=== PATIENT | female | born 1995 | race Caucasian/White ===

== ENCOUNTER 2016-11-29 18:00 | Emergency (ER) | payer BC ==
[~2016-11-29] VITALS: Ht 152.4 cm; Wt 55.4 kg
[~2016-11-29 18:00] MED LIST: NAPR1TAB9 PO; NUTR-977 PO
[2016-11-29 18:04] VITALS: TEMP 36.9; Ht 152.4 cm; Wt 55.4 kg
--- NOTE | 2016-11-29 18:23 | EMERGENCY ROOM VISIT NOTE ---
History Report prepared by Delmi: Joseph Woods Under the Supervision of: Dr. Bertin Galdamez D.O. First contact with patient: 18:11 Chief Complaint: ABDOMINAL PAIN Stated Complaint: [id number]&[id number] ,FEAR OF ECTOPIC History of Present Illness The patient is a 21 year old female who presents to the Emergency Room with complaints of intermittent and severe abdominal cramping as well as light vaginal "spotting." The patient states that she is currently 6 weeks and has been experiencing her symptoms since 1.5 weeks after supposed conception. Her aches and cramping are primarily on the left side. She notes that she has been noticing some spotting, but that it has been very light. This is the patient's first . Her last normal menstrual period was November 19. 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 A total of 10 systems reviewed and were otherwise negative. Past Medical & Surgical Medical Problems: (1) Irregular menstrual bleeding Family History Cancer Diabetes mellitus Hypertension Social History Smoking Status: Never Smoker Alcohol Use: occasionally Drug Use: none Housing Status: lives with roommate Occupation Status: employed Current/Historical Medications No Active Prescriptions or Reported Meds Allergies Coded Allergies: No Known Allergies (Unverified , 03/12/16) Physical Exam Vital Signs Date Time Temp Pulse Resp B/P (MAP) Pulse Ox O2 Delivery O2 Flow Rate FiO2 11/29/16 20:40 70 16 124/81 98 11/29/16 20:00 69 16 116/74 98 Room Air 11/29/16 18:04 36.9 86 17 133/85 99 Room Air Physical Exam GENERAL: Patient is awake, alert, and in no acute distress. Patient is resting comfortably and showing no signs of anxiety EYES: The conjunctivae are clear. The pupils are round and reactive. EARS, NOSE, MOUTH AND THROAT: The nose is without any evidence of any deformity. Mucous membranes are moist tongue is midline NECK: The neck is nontender and supple. RESPIRATORY: Normal respiratory effort is noted there is no evidence of wheezing rhonchi or rales CARDIOVASCULAR: Regular rate and rhythm noted there no murmurs rubs or gallops normal S1 normal S2 GASTROINTESTINAL: The abdomen is soft. Bowel sounds are present in all quadrants. Abdomen is nontender PELVIS: The Pelvis is stable. No tenderness to palpation is noted. BACK: No midline tenderness or or step-off noted range of motion in flexion extension as well as rotation no signs of muscle spasm noted MUSCULOSKELETAL/EXTREMITIES: There is no evidence of gross deformity full range of motion is noted in the hips and shoulders SKIN: There is no obvious evidence of any rash. There are no petechiae, pallor or cyanosis noted. NEUROLOGIC: Patient is awake alert and oriented x3. Medical Decision & Procedures ER Provider Diagnostic Interpretation: Radiology results as stated below per my review and radiologist interpretation: LIMITED (US) (transabdominal and endovaginal scanning) CLINICAL HISTORY: Vaginal bleeding COMPARISON STUDY: 04/04/2014 FINDINGS: The uterus measured 9.5 x 5 x 6.8 cm. A 1.5 cm intrauterine gestational sac was visualized. A yolk sac was identified. No pole wasn't yet evident. The estimated postmenstrual age is 5 weeks and 6 days. Two nonspecific echogenic foci are visualized within the myometrium, adjacent to the gestational sac. The right ovary measures 40 x 17 x 20 mm. The left ovary measures 13 x 10 x 14 mm. IMPRESSION: Early intrauterine gestation. A 15 mm gestational sac with a yolk sac was identified. A pole was not visualized. The estimated postmenstrual age is 5 weeks 6 days. Electronically signed by: Jorge Torres M.D. 11/29/2016 8:05 PM Dictated Date/Time: 11/29/2016 8:01 PM Laboratory Results 11/29/16 18:30 Red Blood Count 4.79, Mean Corpuscular Volume 82.3, Mean Corpuscular Hemoglobin 28.2, Mean Corpuscular Hemoglobin Concent 34.3, Mean Platelet Volume 9.3, Neutrophils (%) (Auto) 69.0, Lymphocytes (%) (Auto) 25.4, Monocytes (%) (Auto) 4.3, Eosinophils (%) (Auto) 0.9, Basophils (%) (Auto) 0.3, Neutrophils # (Auto) 6.69, Lymphocytes # (Auto) 2.47, Monocytes # (Auto) 0.42, Eosinophils # (Auto) 0.09, Basophils # (Auto) 0.03 11/29/16 18:30 Test 11/29/16 18:30 11/29/16 20:30 White Blood Count 9.71 K/uL (4.8-10.8) Red Blood Count 4.79 M/uL (4.2-5.4) Hemoglobin 13.5 g/dL (12.0-16.0) Hematocrit 39.4 % (37-47) Mean Corpuscular Volume 82.3 fL (80-100) Mean Corpuscular Hemoglobin 28.2 pg (25-34) Mean Corpuscular Hemoglobin Concent 34.3 g/dl (32-36) Platelet Count 287 K/uL (130-400) Mean Platelet Volume 9.3 fL (7.4-10.4) Neutrophils (%) (Auto) 69.0 % Lymphocytes (%) (Auto) 25.4 % Monocytes (%) (Auto) 4.3 % Eosinophils (%) (Auto) 0.9 % Basophils (%) (Auto) 0.3 % Neutrophils # (Auto) 6.69 K/uL (1.4-6.5) Lymphocytes # (Auto) 2.47 K/uL (1.2-3.4) Monocytes # (Auto) 0.42 K/uL (0.11-0.59) Eosinophils # (Auto) 0.09 K/uL (0-0.5) Basophils # (Auto) 0.03 K/uL (0-0.2) RDW Standard Deviation 38.4 fL (36.4-46.3) RDW Coefficient of Variation 12.7 % (11.5-14.5) Immature Granulocyte % (Auto) 0.1 % Immature Granulocyte # (Auto) 0.01 K/uL (0.00-0.02) Prothrombin Time 10.6 SECONDS (9.0-12.0) Prothromb Time International Ratio 1.0 (0.9-1.1) Activated Partial Thromboplast Time 30.1 SECONDS (21.0-31.0) Partial Thromboplastin Ratio 1.2 Anion Gap 7.0 mmol/L (3-11) Est Creatinine Clear Calc Drug Dose 98.4 ml/min Estimated GFR () 142.5 Estimated GFR (Non- 123.0 BUN/Creatinine Ratio 11.4 (10-20) Calcium Level 8.3 mg/dl (8.5-10.1) Total Bilirubin 0.3 mg/dl (0.2-1) Aspartate Amino Transf (AST/SGOT) 12 U/L (15-37) Alanine Aminotransferase (ALT/SGPT) 18 U/L (12-78) Alkaline Phosphatase 68 U/L (45-117) Total Protein 7.7 gm/dl (6.4-8.2) Albumin 3.7 gm/dl (3.4-5.0) Globulin 4.0 gm/dl (2.5-4.0) Albumin/Globulin Ratio 0.9 (0.9-2) Human Chorionic Gonadotropin, Quant 36112 mIU/mL Urine Color YELLOW Urine Appearance CLEAR (CLEAR) Urine pH 7.5 (4.5-7.5) Urine Specific [place] 1.009 (1.000-1.030) Urine Protein NEG (NEG) Urine Glucose (UA) NEG (NEG) Urine Ketones NEG (NEG) Urine Occult Blood NEG (NEG) Urine Nitrite NEG (NEG) Urine Bilirubin NEG (NEG) Urine Urobilinogen NEG (NEG) Urine Leukocyte Esterase NEG (NEG) Laboratory results per my review. ED Course 1813: The patient was evaluated in room C5. A complete history and physical examination were performed. 2036:: Upon reevaluation, the patient is resting in bed. I discussed the results and treatment plan with her. She verbalized agreement of the treatment plan. The patient was discharged home. Medical Decision Differential diagnosis: Etiologies such as ectopic , dysfunction uterine bleeding, bleeding dyscrasia, trauma, infection, as well as others were entertained. Impression Primary Impression: Threatened miscarriage Scribe Attestation The scribe's documentation has been prepared under my direction and personally reviewed by me in its entirety. I confirm that the note above accurately reflects all work, treatment, procedures, and medical decision making performed by me. Departure Information Dispostion Home / Self-Care Prescriptions No Active Prescriptions or Reported Meds Referrals No Doctor, Assigned (PCP) Forms HOME CARE DOCUMENTATION FORM, IMPORTANT VISIT INFORMATION Patient Instructions My [facility] Additional Instructions Call your [employer] physician schedule a follow-up appointment. Rest and avoid any strenuous activity. Avoid any heavy lifting.
[2016-11-29 18:44] LABS: BASO % 0.3 %; BASO ABS # 0.03 K/uL (0-0.2); COMPLETE YES; EOS % 0.9 %; HEMATOCRIT 39.4 % (37-47); IG% 0.1 %; LYMPH % 25.4 %; LYMPH ABS # 2.47 K/uL (1.2-3.4); MEAN CELL VOLUME 82.3 fL (80-100); MEAN CORPUSCULAR HEMOGLOBIN 28.2 pg (25-34); MEAN CORPUSCULAR HGB CONC 34.3 g/dl (32-36); MEAN PLATELET VOLUME 9.3 fL (7.4-10.4); MONO % 4.3 %; PLATELET COUNT 287 K/uL (130-400); RED BLOOD COUNT 4.79 M/uL (4.2-5.4); WHITE BLOOD COUNT 9.71 K/uL (4.8-10.8)
[2016-11-29 18:56] LABS: PARTIAL THROMBOPLASTIN RATIO 1.2; PROTHROMBIN TIME (PATIENT) 10.6 SECONDS (9.0-12.0)
[2016-11-29 19:09] LABS: BUN/CREATININE RATIO 11.4 (10-20); CALCIUM 8.3 mg/dl (8.5-10.1); CREATININE 0.7 mg/dl (0.60-1.20); POTASSIUM 3.2 mmol/L (3.5-5.1)
[2016-11-29 19:11] LABS: ALB/GLOB RATIO 0.9 (0.9-2)
--- NOTE | 2016-11-29 20:06 | DIAGNOSTIC IMAGING REPORT ---
LIMITED (US) (transabdominal and endovaginal scanning) CLINICAL HISTORY: Vaginal bleeding COMPARISON STUDY: 04/04/2014 FINDINGS: The uterus measured 9.5 x 5 x 6.8 cm. A 1.5 cm intrauterine gestational sac was visualized. A yolk sac was identified. No pole wasn't yet evident. The estimated postmenstrual age is 5 weeks and 6 days. Two nonspecific echogenic foci are visualized within the myometrium, adjacent to the gestational sac. The right ovary measures 40 x 17 x 20 mm. The left ovary measures 13 x 10 x 14 mm. IMPRESSION: Early intrauterine gestation. A 15 mm gestational sac with a yolk sac was identified. A pole was not visualized. The estimated postmenstrual age is 5 weeks 6 days. Electronically signed by: Jorge Torres M.D. 11/29/2016 8:05 PM Dictated Date/Time: 11/29/2016 8:01 PM
[2016-11-29 20:40] VITALS: BP 124/81; PULSE 70; O2SAT 98
[2016-11-29 20:51] LABS: URINE APPEARANCE CLEAR (CLEAR); URINE BILIRUBIN NEG (NEG); URINE COLOR YELLOW; URINE NITRITE NEG (NEG); URINE PH 7.5 (4.5-7.5); URINE SPECIFIC GRAVITY 1.009 (1.000-1.030); UROBILINOGEN NEG (NEG)
[2016-11-29 20:54] LABS: MANUAL MICROSCOPIC REQUIRED? NO; REVIEW REQ? NO
== END 2016-11-29 20:43 | disposition home or self-care (01) ==
LOC: C.EDB 18:00 → C.EDC 20:43
DX: O20.0 Threatened abortion (principal); Z3A.01 Less than 8 weeks gestation of pregnancy; Z80.9 Family history of malignant neoplasm, unspecified; Z83.3 Family history of diabetes mellitus; Z82.49 Family history of ischemic heart disease and other diseases of the circulatory system